=== PATIENT | female | born 1985 | race Asian ===

== ENCOUNTER 2018-02-02 00:20 | Inpatient (IN) | payer OTHER ==
[2018-02-02] MEDS ORDERED: ELECTROLYTE-148 SOLN 1,000 ML IV SCH (01:00)
--- NOTE | 2018-02-02 01:03 | HP ---
Past Medical History - Admission History of Present Illness: 32 yo @ 38 5/7 wks by first trimester ultrasound, EDC 02/11/2018 complicated by: 1. Prior - Vacuum-assisted vaginal delivery, 6 lb 13 oz, Third Degree laceration 2. Hypothyroid - on levothyroxine 88 mcg Last TFT 11/04/2017: Free T4 1.02; TSH 2.13 She presents with chief complaint of contractions that began at 1800. The contractions increased in intensity and frequency. She reports movement, denies vaginal bleeding or leakage of fluid. History Source: Patient Limitations to Obtaining History: No Limitations - Past Medical History Cardiovascular: No: HTN Gastrointestinal: No: GERD ...: 2 ...Para: 1 ...Term: 1 Heme/Onc: No: Anemia Endocrine: Yes: Hypothyroidism - Past Surgical History Past Surgical History: Yes: None Hx Myomectomy: No Hx Transabdominal Cerclage: No - Smoking History Smoking history: Never smoked Have you smoked in the past 12 months: No - Alcohol/Substance Use Hx Alcohol Use: No - Social History History of Recent Travel: No Home Medications - Allergies Allergies/Adverse Reactions: Allergies Allergy/AdvReac Type Severity Reaction Status Date / Time amoxicillin trihydrate Allergy Intermediate Swelling Verified 05/05/14 20:42 [From Augmentin] potassium clavulanate Allergy Intermediate Swelling Verified 05/05/14 20:42 [From Augmentin] - Home Medications Home Medications: Ambulatory Orders Vitamins (Sjr) - 1 each PO HS 05/05/14 Levothyroxine Sodium [Synthroid] 88 mcg PO DAILY 02/01/18 Family Disease History - Family Disease History Family History: Denies Review of Systems - Review of Systems Constitutional: reports: No Symptoms Cardiovascular: reports: No Symptoms Respiratory: reports: No Symptoms Gastrointestinal: reports: No Symptoms Genitourinary: reports: No Symptoms Musculoskeletal: reports: No Symptoms Neurological: reports: No Symptoms Endocrine: reports: No Symptoms Hematology/Lymphatic: reports: No Symptoms Psychiatric: reports: No Symptoms Physical Exam - Maternity Constitutional: Yes: Well Nourished, No Distress, Moderate Distress Cardiovascular: Yes: Regular Rate and Rhythm Lungs: Clear to auscultation - Abdominal Exam/OB Number of Fetuses: Single Contractions: Yes Regularity: Regular Intensity: Moderate Monitor Mode: External Category: I Accelerations: Non-Uniform Decelerations: None - Vaginal Exam/OB Dilatation (cm): 6 Effacement (%): 90 Amniotic Membrane Status: Intact Station: -1 - Physical Exam Psychiatric: Yes: Alert, Oriented - Labs Lab Results: PNL: O positive; antibody negative; RPR NR; HBS Ag neg; HCV negative; Rubella Immune; Varicella Non immune; GCT WNL; Sequential Screen WNL; GBS negative Hemorrhage Risk Assessment - Risk Factors Medium Risk Factors: Yes: None High Risk Factors: Yes: None Risk Score: 1 Risk Level: Medium Risk Assessment/Plan 32 yo @ 38 wks active labor 1. Admit to L&D. Consents reviewed and signed. Reviewed risks of third degree laceration, risk of recurrence of third degree laceration or risk of fourth degree laceration. Reviewed risk of incontinence. Discussed elective primary CD , she declines. Encouraged early epidural. Discussed possible episiotomy. Reviewed risk of hemorrhage, transfusion. 2. GBs negative 3. Category I FHT 4. Will offer pain control upon patient request; encouraged early epidural. 5. Will continue with expectant management
[2018-02-02 01:39] VITALS: BMI 28.0
[2018-02-02 01:48] LABS: BASO % 0.3 % (0-2.0); EOS % 1.2 % (0-4.5); HEMATOCRIT 35.8 % (32.4-45.2); HEMOGLOBIN 11.8 GM/dL (10.7-15.3); LYMPH % 14.3 % (8-40); MCH 27.6 pg (25.7-33.7); MEAN CELL VOLUME 83.4 fl (80-96); MEAN PLT VOLUME 7.5 fl (7.5-11.1); MONO % 7.1 % (3.8-10.2); NEUT % 77.1 % (42.8-82.8); PLATELET COUNT 271 K/MM3 (134-434); RBC 4.29 M/mm3 (3.60-5.2); RDW 15.2 % (11.6-15.6); WHITE BLOOD COUNT 13.5 K/mm3 (4.0-10.0)
[2018-02-02 02:06] LABS: INR 0.89 (0.82-1.09); PROTHROMBIN TIME (PATIENT) 10.1 SEC (9.7-13.0)
[2018-02-02 02:08] LABS: ACTIVATED PTT 26.8 SECONDS (25.2-36.5)
[2018-02-02] MEDS ORDERED: FENTANYL/BUPIVACAINE/NS/PF - PCEA - 50 ML DISP.SYRIN EP ONE (02:15)
[2018-02-02 02:18] LABS: ANION GAP 8 (8-16); BLOOD UREA NITROGEN 11 mg/dL (7-18); CALCIUM 9.3 mg/dL (8.5-10.1); CHLORIDE 104 mmol/L (98-107); CO2 25 mmol/L (21-32); CREATININE 0.6 mg/dL (0.55-1.02); GLUCOSE,RANDOM 86 mg/dL (74-106); POTASSIUM 4.3 mmol/L (3.5-5.1); SODIUM 137 mmol/L (136-145)
[2018-02-02] MEDS ORDERED: OXYTOCIN 20 UNITS in 0.9% NS 20 UNIT/1,000 ML INFUS.BAG IV ONE (02:45)
[2018-02-02] MEDS ORDERED: LIDOCAINE HCL 1% PRESERVATIVE FREE - 30ML VIAL ONE (03:02)
[2018-02-02] MEDS ORDERED: oxyCODONE HCL 5 MG TABLET PO PRN (03:40)
[2018-02-02] MEDS ORDERED: BENZOCAINE 20% 57 GM BOTTLE TP PRN (03:40)
[2018-02-02] MEDS ORDERED: METHYLERGONOVINE MALEATE 0.2 MG/1 ML AMP IM PRN (03:40)
[2018-02-02] MEDS ORDERED: WITCH HAZEL 50% (TUCKS) 40 PAD/JAR PAD TP PRN (03:40)
[2018-02-02] MEDS ORDERED: BISACODYL 10 MG SUPP.RECT RC PRN (03:40)
[2018-02-02] MEDS ORDERED: BENZOCAINE 28 GM HEMORRHOIDAL OINTMENT TP PRN (03:40)
--- NOTE | 2018-02-02 03:40 | PN ---
Delivery - Delivery Vaginal Delivery: No Problems Type of Anesthesia: Local Episiotomy/Laceration: Midline, 2nd degree EBL (cc): 500 Delivery, Single - Stages of Labor Date 1st Stage Initiatied: 02/02/18 Time 1st Stage Initiated: 00:00 Date 2nd Stage Initiated: 02/02/18 Time 2nd Stage Initiated: 02:40 Date of Delivery: 02/02/18 Time of Delivery: 02:59 Date Placenta Delivered: 02/02/18 Time Placenta Delivered: 03:26 Placenta: Yes: Manual Removal - Condition of Infant Infant Gender: Male Position: OA Total Hours ROM (Hrs/Mins): 31 minutes - 1 Minute Total Score: 9 5 Minutes Total Score: 9 - Feeding Plan Initial Plan: Exclusive throughout hospitalization Remarks - Remarks Remarks: Patient progressed to fully dilated and at 0259 via delivered a viable male infant in direct OA position, APGARs 9,9. Weight and length unknown at this time. Head delivered spontaneously, nuchal cord noted, shoulders body delivered through without difficulty. with spontaneous cry and placed on mother's abdomen. Nose and mouth was bulb suctioned. Cord was clamped and cut. Perineum and vagina examined, a second degree laceration was noted and repaired in the usual fashion. Rectal exam revealed no sutures in rectum. Placenta was delivered spontaneously and intact. 20 units of pitocin in 1 L IVF was given. All counts correct x 2. Mother and infant stable in LDR. EBL 500cc.
[2018-02-02] MEDS ORDERED: MORPHINE SULFATE 2 MG/ML VIAL IVPUSH ONE (03:43)
[2018-02-02] MEDS ORDERED: OXYTOCIN 20 UNITS in 0.9% NS 20 UNIT/1,000 ML INFUS.BAG IV SCH (03:45)
[2018-02-02] MEDS: IBUPROFEN 600 MG TABLET (FP) PO PRN ×3 (07:27→18:00)
[2018-02-02] MEDS: ACETAMINOPHEN 325 MG TABLET (FP) PO PRN (07:28)
[2018-02-02] MEDS: FERROUS SO4 325 MG TABLET (FP) PO SCH ×3 (07:29→17:57)
--- NOTE | 2018-02-02 09:47 | PN ---
Post Progress Note - Subjective Subjective: Patient without acute complaints. Reports tolerating oral intake without nausea or vomiting. Ambulating without dizziness. Denies fevers or chills. Pain well controlled with oral pain medication. without difficulty. No flatus yet. Post Day: 0 Type of Delivery: Vital Signs: Vital Signs Temperature 98.0 F 02/02/18 05:28 Pulse Rate 72 02/02/18 05:28 Respiratory Rate 20 02/02/18 05:28 Blood Pressure 115/68 02/02/18 05:28 O2 Sat by Pulse Oximetry (%) 99 02/02/18 04:15 Breast Exam: Yes: Engorged Uterus: Yes: Fundus Firm Abdomen/GI: Yes: Abdomen soft, Tolerating PO. No: Abdominal Distention, Tender , Passing flatus Lochia: Yes: Rubra Lochia, amount: Moderate Extremities: Yes: Calves non-tender. No: Edema Perineum: Yes: Laceration Activity: Ambulating - Labs Labs: CBC WBC 13.5 K/mm3 (4.0-10.0) H 02/02/18 00:10 RBC 4.29 M/mm3 (3.60-5.2) 02/02/18 00:10 Hgb 11.8 GM/dL (10.7-15.3) 02/02/18 00:10 Hct 35.8 % (32.4-45.2) D 02/02/18 00:10 MCV 83.4 fl (80-96) 02/02/18 00:10 MCH 27.6 pg (25.7-33.7) 02/02/18 00:10 MCHC 33.0 g/dl (32.0-36.0) 02/02/18 00:10 RDW 15.2 % (11.6-15.6) 02/02/18 00:10 Plt Count 271 K/MM3 (134-434) D 02/02/18 00:10 MPV 7.5 fl (7.5-11.1) 02/02/18 00:10 Absolute Neuts (auto) 10.4 # 02/02/18 00:10 Neutrophils % 77.1 % (42.8-82.8) 02/02/18 00:10 Lymphocytes % 14.3 % (8-40) 02/02/18 00:10 Monocytes % 7.1 % (3.8-10.2) 02/02/18 00:10 Eosinophils % 1.2 % (0-4.5) D 02/02/18 00:10 Basophils % 0.3 % (0-2.0) D 02/02/18 00:10 Nucleated RBC % 0 % (0-0) 02/02/18 00:10 Assessment/Plan 32 yo PPD #0 s/p , afebrile, vital signs stable, doing well 1. Continue routine care 2. Encouraged 3. Synthroid for hypothyroid ordered 4. Will f/u AM CBC PPD # 1 5. Will continue to monitor
[2018-02-02] MEDS: LEVOTHYROXINE NA 88 MCG TABLET (FP) PO SCH (10:27)
[2018-02-02] MEDS: PRENATAL VITAMINS W/ FOLIC ACID TABLET (FP) PO SCH (10:30)
[2018-02-02] MEDS: SENNOSIDES/DOCUSATE COMBO (SENNA PLUS) TABLET (UD) PO PRN (21:46)
[2018-02-03] MEDS: LEVOTHYROXINE NA 88 MCG TABLET (FP) PO SCH (06:30)
[2018-02-03 07:43] LABS: BASO % 0.3 % (0-2.0); EOS % 1.7 % (0-4.5); HEMATOCRIT 25.4 % (32.4-45.2); HEMOGLOBIN 8.5 GM/dL (10.7-15.3); LYMPH % 17.8 % (8-40); MCH 28.2 pg (25.7-33.7); MCHC 33.4 g/dl (32.0-36.0); MEAN CELL VOLUME 84.4 fl (80-96); MEAN PLT VOLUME 7.5 fl (7.5-11.1); MONO % 6.4 % (3.8-10.2); NEUT % 73.8 % (42.8-82.8); PLATELET COUNT 214 K/MM3 (134-434); RBC 3.01 M/mm3 (3.60-5.2); RDW 15.2 % (11.6-15.6)
--- NOTE | 2018-02-03 07:44 | PN ---
Progress Note (short form) - Note Progress Note: ppd1 doing well , no c/o , voids ok CBC, BMP 02/02/18 00:10 Last Vital Signs Temp Pulse Resp BP Pulse Ox 98.4 F 78 20 114/56 99 02/03/18 01:15 02/03/18 01:15 02/03/18 01:15 02/03/18 01:15 02/02/18 04:15 abdomen soft, uterus firm, non tender lochia mild ' no calf tenderness plan ambulate cbc
[2018-02-03] MEDS: FERROUS SO4 325 MG TABLET (FP) PO SCH ×3 (08:47→17:35)
[2018-02-03] MEDS: IBUPROFEN 600 MG TABLET (FP) PO PRN (08:56)
[2018-02-03] MEDS: PRENATAL VITAMINS W/ FOLIC ACID TABLET (FP) PO SCH (09:41)
[2018-02-03] MEDS ORDERED: DIPHTH,PERTUSS(ACELL),TET 0.5 ML DISP.SYRIN IM ONE (10:00)
[2018-02-03] MEDS: SENNOSIDES/DOCUSATE COMBO (SENNA PLUS) TABLET (UD) PO PRN (21:42)
[2018-02-03] MEDS: ACETAMINOPHEN 325 MG TABLET (FP) PO PRN (21:54)
[2018-02-04] MEDS: LEVOTHYROXINE NA 88 MCG TABLET (FP) PO SCH (06:05)
--- NOTE | 2018-02-04 08:07 | DS ---
Physical Exam-CERAMIC [employer]AYER Vital Signs: Vital Signs Temperature 98.0 F 02/03/18 21:39 Pulse Rate 90 02/03/18 21:39 Respiratory Rate 20 02/03/18 21:39 Blood Pressure 119/70 02/03/18 21:39 O2 Sat by Pulse Oximetry (%) 99 02/02/18 04:15 Constitutional: Yes: Well Nourished, No Distress, Calm Eyes: Yes: WNL, Conjunctiva Clear, EOM Intact HENT: Yes: WNL, Atraumatic, Normocephalic Neck: Yes: WNL, Supple, Trachea Midline Cardiovascular: Yes: WNL, Regular Rate and Rhythm Respiratory: Yes: WNL, Regular, CTA Bilaterally Gastrointestinal: Yes: WNL ...Rectal Exam: Yes: WNL Renal/: Yes: WNL ....Post : Yes: Uterus firm, Uterus non-tender, Slight lochia rubra Breast(s): Yes: WNL Musculoskeletal: Yes: WNL Extremities: Yes: WNL Integumentary: Yes: WNL Neurological: Yes: WNL, Alert, Oriented ...Motor Strength: WNL Psychiatric: Yes: WNL, Alert, Oriented Labs: CBC, BMP 02/03/18 06:30 02/02/18 00:10 Delivery - Delivery Vaginal Delivery: No Problems, Spontaneous Type of Anesthesia: Local Episiotomy/Laceration: Midline, 2nd degree EBL (cc): 500 Delivery, Single - Stages of Labor Date 1st Stage Initiatied: 02/02/18 Time 1st Stage Initiated: 00:00 Date 2nd Stage Initiated: 02/02/18 Time 2nd Stage Initiated: 02:40 Date of Delivery: 02/02/18 Time of Delivery: 02:59 Time Placenta Delivered: 03:26 Placenta: Yes: Manual Removal - Condition of Home Health Care Provider/Patient Service Technician Pst Present: No Infant Gender: Male Weight: 5 lb 13 oz Position: OA Total Hours ROM (Hrs/Mins): 31 minutes - 1 Minute Total Score: 9 5 Minutes Total Score: 9 - [place] Feeding Plan Initial Plan: Exclusive throughout hospitalization Discharge Summary Reason For Visit: LABOR Procedures: Principal: Condition: Good - Instructions Diet, Activity, Other Instructions: regular diet, if heavy vaginal bleeding, fever, pain call , no intercourse follow up office 4 weeks Referrals: Memo Hendrix MD [Staff Physician] - Disposition: HOME - Home Medications Comprehensive Discharge Medication List: Ambulatory Orders Vitamins (Sjr) - 1 each PO HS 05/05/14 Levothyroxine Sodium [Synthroid] 88 mcg PO DAILY 02/01/18 Ibuprofen [Motrin -] 600 mg PO QID #28 tablet 02/03/18
[2018-02-04] MEDS: PRENATAL VITAMINS W/ FOLIC ACID TABLET (FP) PO SCH (09:01)
[2018-02-04] MEDS: FERROUS SO4 325 MG TABLET (FP) PO SCH (09:01)
[2018-02-04 09:46] VITALS: BP 121/56; PULSE 80; TEMP 98.2
== END 2018-02-04 10:15 | disposition home or self-care (01) | DRG 775 ==
LOC: JDEL 00:20 → JLDR 00:35 → J3W 05:09
PROVIDERS: ADMIT Obstetrics & Gynecology; ATTEND Obstetrics & Gynecology
PROC: 10E0XZZ Delivery of Products of Conception, External Approach (ICD-10-PCS; principal; 2018-02-02)
PROC: 0KQM0ZZ Repair Perineum Muscle, Open Approach (ICD-10-PCS; 2018-02-02)
DX: O99.284 Endocrine, nutritional and metabolic diseases complicating childbirth (principal); E03.9 Hypothyroidism, unspecified; O69.81X0 Labor and delivery complicated by cord around neck, without compression, not applicable or unspecified; O70.1 Second degree perineal laceration during delivery; Z3A.38 38 weeks gestation of pregnancy; Z37.0 Single live birth
CPT/HCPCS: 36415; 59409; 80048; 85025; 85610; 85730; 86593; 86850; 86900; 86901; 90715

== ENCOUNTER 2021-01-09 15:18 | Inpatient (IN) | payer OTHER ==
[2021-01-09] MEDS ORDERED: DEXTROSE 5%-LACTATED RINGERS 1,000 ML IV SCH (16:45)
[2021-01-09 16:51] VITALS: BMI 28.5
[2021-01-09] MEDS ORDERED: OXYTOCIN 20 UNITS in 0.9% NS 20 UNIT/1,000 ML INFUS.BAG IV ONE ×2 (17:10→20:16)
[2021-01-09] MEDS ORDERED: LIDOCAINE HCL 1% PRESERVATIVE FREE - 30ML VIAL ONE (17:10)
[2021-01-09 17:53] LABS: BASO % 0.3 % (0-2.0); EOS % 0.6 % (0-4.5); HEMATOCRIT 36.3 % (32.4-45.2); HEMOGLOBIN 12.3 GM/dL (10.7-15.3); LYMPH % 17.4 % (8-40); MCH 28.6 pg (25.7-33.7); MEAN CELL VOLUME 84.1 fl (80-96); MEAN PLT VOLUME 7.8 fl (7.5-11.1); MONO % 6.6 % (3.8-10.2); NEUT % 75.1 % (42.8-82.8); PLATELET COUNT 222 10^3/uL (134-434); RBC 4.31 M/mm3 (3.60-5.2); RDW 16.1 % (11.6-15.6)
[2021-01-09 18:03] LABS: CALCIUM 9.7 mg/dL (8.5-10.1)
[2021-01-09 18:04] LABS: BLOOD UREA NITROGEN 11.4 mg/dL (7-18)
[2021-01-09 18:06] LABS: INR 0.86 (0.83-1.09); PROTHROMBIN TIME (PATIENT) 10.5 SEC (9.7-13.0)
[2021-01-09] MEDS ORDERED: BENZOCAINE 20% 57 GM BOTTLE TP PRN (18:06)
[2021-01-09] MEDS ORDERED: METHYLERGONOVINE MALEATE 0.2 MG/1 ML AMP IM PRN (18:06)
[2021-01-09] MEDS ORDERED: BISACODYL 10 MG SUPP.RECT RC PRN (18:06)
[2021-01-09] MEDS ORDERED: WITCH HAZEL 50% (TUCKS) 40 PAD/JAR PAD TP PRN (18:06)
[2021-01-09] MEDS ORDERED: BENZOCAINE 28 GM HEMORRHOIDAL OINTMENT TP PRN (18:06)
[2021-01-09 18:07] LABS: CREATININE 0.8 mg/dL (0.55-1.3)
[2021-01-09 18:08] LABS: ACTIVATED PTT 26.6 SECONDS (25.2-36.5)
[2021-01-09] MEDS: IBUPROFEN 600 MG TABLET (FP) PO PRN (18:10)
[2021-01-09] MEDS: ACETAMINOPHEN 325 MG TABLET (FP) PO PRN (18:10)
[2021-01-09] MEDS ORDERED: OXYTOCIN 20 UNITS in 0.9% NS 20 UNIT/1,000 ML INFUS.BAG IV SCH (18:15)
[2021-01-10] MEDS: LEVOTHYROXINE NA 125 MCG TABLET (FP) PO SCH (06:36)
[2021-01-10] MEDS: IBUPROFEN 600 MG TABLET (FP) PO PRN ×2 (06:36→16:40)
[2021-01-10] MEDS: ACETAMINOPHEN 325 MG TABLET (FP) PO PRN ×2 (06:37→16:42)
[2021-01-10 09:20] LABS: BASO % 0.2 % (0-2.0); EOS % 0.8 % (0-4.5); HEMATOCRIT 32.1 % (32.4-45.2); HEMOGLOBIN 10.8 GM/dL (10.7-15.3); MCH 28.4 pg (25.7-33.7); MCHC 33.6 g/dl (32.0-36.0); MEAN CELL VOLUME 84.6 fl (80-96); MEAN PLT VOLUME 7.5 fl (7.5-11.1); MONO % 6.1 % (3.8-10.2); NEUT % 77.9 % (42.8-82.8); PLATELET COUNT 187 10^3/uL (134-434); RDW 16.1 % (11.6-15.6); WHITE BLOOD COUNT 12.5 K/mm3 (4.0-10.0)
[2021-01-10] MEDS: FERROUS SO4 325 MG TABLET (FP) PO SCH ×3 (09:22→16:40)
[2021-01-10] MEDS: PRENATAL VITAMINS W/ FOLIC ACID TABLET (FP) PO SCH (09:22)
[2021-01-10] MEDS ORDERED: SENNOSIDES/DOCUSATE COMBO (SENNA PLUS) TABLET (UD) PO PRN (22:00)
[2021-01-11] MEDS: LEVOTHYROXINE NA 125 MCG TABLET (FP) PO SCH (06:31)
[2021-01-11] MEDS: PRENATAL VITAMINS W/ FOLIC ACID TABLET (FP) PO SCH (09:18)
[2021-01-11] MEDS: FERROUS SO4 325 MG TABLET (FP) PO SCH (09:18)
[2021-01-11 10:12] VITALS: BP 119/61; PULSE 77; TEMP 97.9
[2021-01-11] MEDS: IBUPROFEN 600 MG TABLET (FP) PO PRN (11:32)
[2021-01-11] MEDS: ACETAMINOPHEN 325 MG TABLET (FP) PO PRN (11:33)
== END 2021-01-11 12:00 | disposition home or self-care (01) | DRG 807 ==
LOC: JDEL 15:18 → JLDR 16:00 → J3W 20:30
PROVIDERS: ADMIT Obstetrics & Gynecology; ATTEND Obstetrics & Gynecology
PROC: 0W8NXZZ Division of Female Perineum, External Approach (ICD-10-PCS; principal; 2021-01-09)
PROC: 10E0XZZ Delivery of Products of Conception, External Approach (ICD-10-PCS; 2021-01-09)
PROC: 0KQM0ZZ Repair Perineum Muscle, Open Approach (ICD-10-PCS; 2021-01-09)
DX: O70.1 Second degree perineal laceration during delivery (principal); Z37.0 Single live birth; O99.284 Endocrine, nutritional and metabolic diseases complicating childbirth; E03.9 Hypothyroidism, unspecified; Z3A.38 38 weeks gestation of pregnancy; Z88.1 Allergy status to other antibiotic agents; Z88.8 Allergy status to other drugs, medicaments and biological substances
CPT/HCPCS: 36415; 59409; 80048; 85025; 85610; 85730; 86780; 86850; 86900; 86901; C9803; U0003; U0005

== ENCOUNTER 2021-01-17 11:47 | Emergency (ER) | payer OTHER ==
[2021-01-17 11:57] VITALS: BMI 28.0
[2021-01-17] MEDS ORDERED: SODIUM CHLORIDE 2,150 ML IV ONE (12:25)
[2021-01-17] MEDS ORDERED: ACETAMINOPHEN 1000 MG/100 ML VIAL (NON FORMULARY) IVPB ONE ×2 (12:33→12:36)
[2021-01-17] MEDS ORDERED: LACTATED RINGERS SOLUTION 1000 ML INFUS.BAG IV ONE (12:36)
[2021-01-17] MEDS ORDERED: ACETAMINOPHEN INJECTION 100 ML IVPB ONE (12:36)
[2021-01-17 13:30] LABS: BASO % 0.3 % (0-2.0); HEMATOCRIT 33.5 % (32.4-45.2); LYMPH % 6.6 % (8-40); MEAN PLT VOLUME 6.8 fl (7.5-11.1); MONO % 6.8 % (3.8-10.2); NEUT % 85.3 % (42.8-82.8); PLATELET COUNT 325 10^3/uL (134-434); RBC 3.94 M/mm3 (3.60-5.2); RDW 16.2 % (11.6-15.6)
[2021-01-17 13:38] LABS: INR 0.98 (0.83-1.09); PROTHROMBIN TIME (PATIENT) 11.9 SEC (9.7-13.0)
[2021-01-17 13:39] LABS: EPI CELLS 2 /uL (0-25.1); HYALINE CASTS 0 /uL (0-3.1); URINE APPEARANCE CLEAR; URINE BACTERIA 8 /uL (0-1359); URINE BILIRUBIN NEGATIVE (NEGATIVE); URINE COLOR YELLOW; URINE GLUCOSE (UA) NEGATIVE (NEGATIVE); URINE KETONE NEGATIVE (NEGATIVE); URINE LEUK ESTERASE NEGATIVE (NEGATIVE); URINE NITRITE NEGATIVE (NEGATIVE); URINE PROTEIN NEGATIVE (NEGATIVE); URINE RBC 178 /uL (0-23.9); URINE UROBILINOGEN 0.2 mg/dL (0.2-1.0); URINE WBC 6 /uL (0-25.8)
[2021-01-17 13:41] LABS: ACTIVATED PTT 27.9 SECONDS (25.2-36.5)
[2021-01-17 13:47] LABS: CHLORIDE 105 mmol/L (98-107); SODIUM 132 mmol/L (136-145)
[2021-01-17 13:49] LABS: CALCIUM 8.8 mg/dL (8.5-10.1)
[2021-01-17 13:50] LABS: ALBUMIN 2.8 g/dl (3.4-5.0); BLOOD UREA NITROGEN 8.2 mg/dL (7-18); CO2 22 mmol/L (21-32); GLUCOSE,RANDOM 91 mg/dL (74-106)
[2021-01-17 13:53] LABS: CREATININE 0.6 mg/dL (0.55-1.3); SGOT/AST 103 U/L (15-37)
[2021-01-17 13:54] LABS: BILIRUBIN,TOTAL 0.5 mg/dL (0.2-1)
[2021-01-17 13:55] LABS: TOT PROT 7.4 g/dl (6.4-8.2)
[2021-01-17 13:56] LABS: ALK PHOS 113 U/L (45-117)
[2021-01-17 14:04] LABS: ANION GAP 5 MMOL/L (8-16); SGPT/ALT 35 U/L (13-61)
[2021-01-17] MEDS ORDERED: CEPHALEXIN MONOHYDRATE 500 MG CAPSULE (UD) PO ONE (15:24)
[2021-01-17] MEDS ORDERED: CEPHALEXIN MONOHYDRATE 500 MG CAPSULE (UD) ONE (16:18)
[2021-01-17 16:32] VITALS: BP 127/75; PULSE 104; TEMP 99.1
== END 2021-01-17 16:33 | disposition home or self-care (01) ==
LOC: JER 11:47
PROC: 3E033NZ Introduction of Analgesics, Hypnotics, Sedatives into Peripheral Vein, Percutaneous Approach (ICD-10-PCS; principal; 2021-01-17)
PROC: 3E0337Z Introduction of Electrolytic and Water Balance Substance into Peripheral Vein, Percutaneous Approach (ICD-10-PCS; 2021-01-17)
DX: N61.0 Mastitis without abscess (principal); R50.9 Fever, unspecified
CPT/HCPCS: 36415; 71045-TC-FY; 80053; 81003; 83605; 84132; 84484; 84703; 85025; 85610; 85730; 87040; 87086; 93005; 93010; 99285-25; C9803; J0131; U0003; U0005